=== PATIENT | male | born 1955 | race Caucasian/White ===

== ENCOUNTER 2017-04-05 11:50 | Emergency (ER) | payer OTHER ==
--- NOTE | ~2017-04-05 | CR142 ---
[facility] A Service of [facility] RADIOLOGY TEXT RESULTS PATIENT: AYAAN BRAVO LOCATION: [facility] : 57 UNIT #: [id number] AGE: [address]: Lubna Barrios APRN SEX: M ORDER DR: [id number] [facility] [address] [address] [place], [place] [address] [id number] E MR#: [id number] Acc #: [id number] NAME: AYAAN BRAVO. : 1955 SEX: M STUDY DATE/TIME: 04/05/2017 13:24 UNIT: [facility] ROOM: STUDY DESCRIPTION: CR Hand Min 3 Views Rt Attending Physician: Lubna Barrios A.P.R.N. Ordering Physician: Tyrel Lu M.D. Primary Care Physician: Shefali Brooks A.P.R.N. 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 TECHNIQUE 3 views of the hand were obtained. FINDINGS 3 views of the hand show multiple very small and faint radiodensities at the laceration site probably representing a small metallic dust like foreign bodies. Metallic foreign bodies are also seen over the wrist medially and at the index finger tip as well as adjacent to the fourth PIP joint that are probably unrelated to this injury. Degenerative changes are seen predominately at the first carpometacarpal joint and to a lesser extent at the interphalangeal joints with osteophytes consistent with osteoarthritis. IMPRESSION Osteoarthritis. No acute bony abnormalities are seen. There are metallic foreign bodies away from the laceration site. There is a dust like metallic density seen at the laceration site likely representing tiny metallic foreign bodies. Dictated by... Tyrel Motta M.D. THIS IS AN ELECTRONICALLY VERIFIED REPORT Tyrel Motta M.D. at 04/07/2017 12:40 PM RLF/harjit TD: 04/05/2017 13:46 [facility] A Service of [facility] RADIOLOGY TEXT RESULTS PATIENT: AYAAN BRAVO [facility] #: [id number] : 57 UNIT #: [id number] AGE: [address]: Lubna Barrios APRN SEX: M ORDER DR: JOB #: [id number] MEDICAL IMAGING REPORT Page 1 of 1 COPY
== END 2017-04-05 16:11 | disposition home or self-care (01) ==
LOC: CED 11:50
DX: S61.411A Laceration without foreign body of right hand, initial encounter (principal); I10 Essential (primary) hypertension; E11.9 Type 2 diabetes mellitus without complications; F17.210 Nicotine dependence, cigarettes, uncomplicated; X58.XXXA Exposure to other specified factors, initial encounter; Y92.9 Unspecified place or not applicable
CPT/HCPCS: 12034; 73130; 99283